=== PATIENT | female | born 1985 | race Asian ===

== ENCOUNTER 2017-08-20 14:15 | Inpatient (IN) | payer OTHER ==
[~2017-08-20] VITALS: Ht 157.6 cm; Wt 72.7 kg
[2017-09-23] VITALS (12 sets, daily range): BP systolic 97–114; BP diastolic 54–72; PULSE 75–108; TEMP 93–98.6
[2017-09-23] MEDS ORDERED: PRENATAL MVI (19:18)
[2017-09-23 20:13] LABS: MEAN CELL VOLUME 82 fl (80.0-100.0); MEAN CORPUSCULAR HGB CONC 32 g/dl (33.0-37.0); MEAN PLATELET VOLUME 12.1 fl (7.4-10.4); PLATELET COUNT 194 K/mm3 (130-400); RED BLOOD COUNT 4.52 M/mm3 (4.10-5.30); WHITE BLOOD COUNT 11.8 K/mm3 (4.8-10.8)
[2017-09-23 20:14] LABS: ADD PATHOLOGY DIFF REVIEW NO; HEMATOCRIT 36.9 % (37.0-47.0); HEMOGLOBIN 11.9 g/dl (12.5-16.0); MEAN CORPUSCULAR HEMOGLOBIN 26 pg (27.0-31.0)
[2017-09-23 20:33] LABS: BAND 5 % (0-10); EOSINOPHIL 2 % (0-4); LYMPHOCYTE 21 % (20.0-51.0); METAMYELOCYTE 3 % (0-0); NEUTROPHILS 66 % (42.0-75.2); TOTAL CELLS COUNTED 100
[2017-09-23 20:34] LABS: ANISOCYTOSIS 2+; HYPOCHROMIA 1+; MICROCYTOSIS 2+; POIKILOCYTOSIS 1+; POLYCHROMASIA 1+
[2017-09-24] VITALS (76 sets, daily range): BP systolic 75–127; BP diastolic 45–86; PULSE 70–122; TEMP 82–98.5
[2017-09-25 04:31] VITALS: BP 96/61; PULSE 107; TEMP 98.1
[2017-09-25 06:54] LABS: BASO % 0.3 % (0.0-2.0); EOS % 0.1 % (0-4.0); GRAN # 12.2 (1.4-6.5); GRAN % 80.6 % (42.2-75.2); LYMPH # 1.8 (1.2-3.4); LYMPH % 12.1 % (20.0-51.0); MEAN CELL VOLUME 81 fl (80.0-100.0); MEAN CORPUSCULAR HGB CONC 32 g/dl (33.0-37.0); MEAN PLATELET VOLUME 11.9 fl (7.4-10.4); MONO # 0.9 (0.1-0.6); PLATELET COUNT 171 K/mm3 (130-400); RED BLOOD COUNT 4.23 M/mm3 (4.10-5.30); WHITE BLOOD COUNT 15.1 K/mm3 (4.8-10.8)
[2017-09-25 06:55] LABS: HEMATOCRIT 34.4 % (37.0-47.0); MEAN CORPUSCULAR HEMOGLOBIN 26 pg (27.0-31.0)
[2017-09-25 07:32] VITALS: BP 111/71; PULSE 113; TEMP 98
[2017-09-25 16:30] VITALS: BP 105/69; PULSE 88; TEMP 98.1
[2017-09-25 20:00] VITALS: BP 94/58; PULSE 66; TEMP 98.2
[2017-09-26 07:05] VITALS: BP 108/74; PULSE 90; TEMP 97.9
[2017-09-26] MEDS ORDERED: IBU600 MG PO (09:08)
[2017-09-26] MEDS ORDERED: PERCOCET 325 MG1 TA2 PO (09:08)
[2017-09-26 17:00] VITALS: BP 84/62; PULSE 82; TEMP 97.8
[2017-09-26 19:45] VITALS: BP 115/73; PULSE 83; TEMP 98.6
[2017-09-27 09:00] VITALS: BP 102/61; PULSE 87; TEMP 97.6
== END 2017-09-27 13:10 | disposition home or self-care (01) | DRG 766 ==
LOC: LDR → OB 09-17 14:15 → LDR 09-23 07:11 → OB 09-23 19:04 → LDR 09-23 19:04 → OB 09-24 19:30
PROVIDERS: Obstetrics & Gynecology
PROC: 10D00Z1 Extraction of Products of Conception, Low, Open Approach (ICD-10-PCS; principal; 2017-09-24)
PROC: 3E033VJ Introduction of Other Hormone into Peripheral Vein, Percutaneous Approach (ICD-10-PCS; 2017-09-24)
DX: O48.0 Post-term pregnancy (principal); O34.13 Maternal care for benign tumor of corpus uteri, third trimester; D25.2 Subserosal leiomyoma of uterus; O75.89 Other specified complications of labor and delivery; O62.1 Secondary uterine inertia; Z3A.40 40 weeks gestation of pregnancy; Z37.0 Single live birth
CPT/HCPCS: J0690; J1885; J2175; J2210; J2250; J2270; J2370; J2400; J2405; J2590; J3010; J7120